=== PATIENT | female | born 1980 | race Two or more races ===

== ENCOUNTER 2020-03-22 07:49 | Day surgery (SDC) | payer SELFPAY ==
[2020-03-19 10:52] LABS: BLOOD UREA NITROGEN,BUN 18 mg/dL (7.0-18.0); CARBON DIOXIDE,CO2 23.7 mmol/L (21.0-32.0); CHLORIDE,CL 105 mmol/L (98-107); GLUCOSE RANDOM 102 mg/dL (74-106); SODIUM,NA 139 mmol/L (136-145)
[~2020-03-22 07:49] MED LIST: Lactated Ringers 1,000 ML IV SCH; Sodium Chloride 0.9% 10 ML SDV IV PRN; Sodium Chloride 0.9% 10 ML Syringe FLUSH PRN; Sodium Chloride 0.9% 2.5 ML Syringe FLUSH PRN; ceFAZolin 2 GM in Premix Bag 1 BAG IV ONE
--- NOTE | 2020-03-22 08:39 | PCM.PREANE ---
Preanesthetic Assessment - Anesthesia/Transfusion/Family Hx Anesthesia History: Prior Anesthesia Without Reaction Family History of Anesthesia Reaction: No Transfusion History: No Prior Transfusion(s) Intubation History: Unknown - Review of Systems General: No Symptoms Pulmonary: No Symptoms Cardiovascular: No Symptoms Gastrointestinal: No Symptoms Neurological: No Symptoms Other: Reports: None - Physical Assessment Vital Signs: Last Vital Signs Temp 36.5 C 03/22/20 08:08 Pulse 67 03/22/20 08:08 Resp 14 03/22/20 08:08 BP 117/69 03/22/20 08:08 Pulse Ox 100 03/22/20 08:08 Height: 5 ft 2 in Weight: 72.575 kg ASA Class: 2 Mental Status: Alert & Oriented x3 Airway Class: Mallampati = 2 Dentition: Reports: Normal Dentition Thyro-Mental Finger Breadths: 3 Mouth Opening Finger Breadths: 3 ROM/Head Extension: Full Lungs: Clear to Auscultation, Normal Respiratory Effort Cardiovascular: Regular Rate, Regular Rhythm - Lab Values: Laboratory Last Values WBC 5.57 K/uL (4.0-11.0) 03/22/20 08:09 RBC 4.50 M/uL (4.30-5.90) 03/22/20 08:09 Hgb 9.0 g/dL (12.0-16.0) L 03/22/20 08:09 Hct 31.6 % (36.0-46.0) L 03/22/20 08:09 MCV 70.2 fL (80.0-98.0) L 03/22/20 08:09 MCH 20.0 pg (27.0-32.0) L 03/22/20 08:09 MCHC 28.5 g/dL (31.0-37.0) L 03/22/20 08:09 RDW Std Deviation 52.6 fl (28.0-62.0) 03/22/20 08:09 RDW Coeff of Angi 21 % (11.0-15.0) H 03/22/20 08:09 Plt Count 328 K/uL (150-400) 03/22/20 08:09 MPV 8.80 fL (7.40-12.00) 03/22/20 08:09 Nucleated RBC % 0.0 /100WBC 03/22/20 08:09 Nucleated RBCs # 0 K/uL 03/22/20 08:09 Sodium 139 mmol/L (136-145) 03/19/20 10:12 Potassium 4.0 mmol/L (3.5-5.1) 03/19/20 10:12 Chloride 105 mmol/L (98-107) 03/19/20 10:12 Carbon Dioxide 23.7 mmol/L (21.0-32.0) 03/19/20 10:12 BUN 18 mg/dL (7.0-18.0) 03/19/20 10:12 Creatinine 0.6 mg/dL (0.6-1.0) 03/19/20 10:12 Est Cr Clr Drug Dosing TNP 03/19/20 10:12 Estimated GFR (MDRD) > 60.0 ml/min 03/19/20 10:12 Glucose 102 mg/dL (74-106) 03/19/20 10:12 Calcium 9.3 mg/dL (8.5-10.1) 03/19/20 10:12 HCG, Qual NEGATIVE (NEG) 03/19/20 10:12 Blood Type A POSITIVE 03/19/20 10:14 Antibody Screen NEGATIVE 03/19/20 10:14 - Allergies Allergies/Adverse Reactions: Allergies Allergy/AdvReac Type Severity Reaction Status Date / Time No Known Allergies Allergy Verified 03/22/20 08:17 - Blood Blood Available: No - Anesthesia Plan Pre-Op Medication Ordered: None - Acknowledgements Anesthesia Type Planned: General Anesthesia Pt an Appropriate Candidate for the Planned Anesthesia: Yes Alternatives and Risks of Anesthesia Discussed w Pt/Guardian: Yes Pt/Guardian Understands and Agrees with Anesthesia Plan: Yes PreAnesthesia Questionnaire HEENT History: Reports: None Cardiovascular History: Reports: None Respiratory History: Reports: None Gastrointestinal History: Reports: None Genitourinary History: Reports: None 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 History: Reports: Fibroids, , Other (See Below) (menorrhagia) Musculoskeletal History: Reports: Fracture Other Musculoskeletal History: hx fx arm Neurological History: Reports: None Psychiatric History: Reports: None Endocrine/Metabolic History: Reports: None Hematologic History: Reports: None Immunologic History: Reports: None Oncologic (Cancer) History: Reports: None Dermatologic History: Reports: None - Infectious Disease History Infectious Disease History: Reports: None - Past Surgical History Head Surgeries/Procedures: Reports: None HEENT Surgical History: Reports: None Cardiovascular Surgical History: Reports: None Respiratory Surgical History: Reports: None GI Surgical History: Reports: Appendectomy Female Surgical History: Reports: Section Endocrine Surgical History: Reports: None Neurological Surgical History: Reports: None Musculoskeletal Surgical History: Reports: None Oncologic Surgical History: Reports: None Dermatological Surgical History: Reports: None - SUBSTANCE USE Tobacco Use Status *Q: Never Tobacco User - HOME MEDS Home Medications: Home Meds Fish Oil/Thomson-3 Fatty Acids [Fish Oil 1,000 MG] 1,000 mg PO DAILY 03/19/20 [History] - CURRENT (IN HOUSE) MEDS Current Meds: Current Medications Lactated Ringer's (Ringers, Lactated) 1,000 mls @ 500 mls/hr IV BOLUS MICHAEL Last Admin: 03/22/20 08:13 Dose: 500 mls/hr Documented by: Sodium Chloride (Saline Flush) 10 ml FLUSH ASDIRECTED PRN PRN Reason: Keep Vein Open Sodium Chloride (Saline Flush) 2.5 ml FLUSH ASDIRECTED PRN PRN Reason: Keep Vein Open Sodium Chloride (Normal Saline) 10 ml IV ASDIRECTED PRN PRN Reason: IV Use Discontinued Medications Cefazolin Sodium/Dextrose 2 gm (/ Premix) 50 mls @ 100 mls/hr IV ONETIME ONE Stop: 03/19/20 10:09
[2020-03-22] MEDS ORDERED: Propofol 200 MG/20 ML SDV ONE (09:04)
[2020-03-22] MEDS ORDERED: Glycopyrrolate 0.2 MG/ML SDV ONE ×2 (09:04→09:39)
[2020-03-22] MEDS ORDERED: Lidocaine 2% 5 ML SDV ONE (09:04)
[2020-03-22] MEDS ORDERED: Ondansetron 4 MG/2 ML SDV ONE (09:04)
[2020-03-22] MEDS ORDERED: fentaNYL 250 MCG/5 ML SDV ONE (09:04)
[2020-03-22] MEDS ORDERED: Rocuronium Bromide 50 MG/5 ML Syringe ONE (09:04)
[2020-03-22] MEDS ORDERED: Midazolam 1 MG/ML 2 ML SDV ONE (09:04)
[2020-03-22] MEDS ORDERED: ceFAZolin 1 GM Vial ONE (09:44)
[2020-03-22] MEDS ORDERED: Sodium Chloride 0.9% 20 ML ONE (09:44)
[2020-03-22] MEDS ORDERED: ePHEDrine 50 MG/ML SDV ONE (09:46)
[2020-03-22] MEDS ORDERED: Furosemide 40 MG/4 ML VIAL ONE (10:39)
[2020-03-22] MEDS ORDERED: Fluorescein 5 ML Vial ONE (10:40)
[2020-03-22] MEDS ORDERED: Octyl 2-Cyanoacrylate 1 Tube ONE (10:51)
[2020-03-22] MEDS ORDERED: EPINEPHrine 1:10,000 1 MG/10 ML Syringe IVPUSH PRN (10:54)
[2020-03-22] MEDS ORDERED: 50% Dextrose in Water 50 ML Syringe IVPUSH PRN (10:54)
[2020-03-22] MEDS ORDERED: Atropine 0.1 MG/ML 10 ML Syringe IVPUSH PRN ×2 (10:54)
[2020-03-22] MEDS ORDERED: Naloxone 0.4 MG/ML Syringe IVPUSH PRN (10:54)
[2020-03-22] MEDS ORDERED: Albuterol 0.083% 2.5 MG/3 ML Neb Soln NEB PRN (10:54)
[2020-03-22] MEDS ORDERED: HYDROmorphone 2 MG/ML Syringe ONE (10:57)
[2020-03-22] MEDS ORDERED: Acetaminophen/oxyCODONE 325-5 MG Tab PO PRN (11:09)
[2020-03-22] MEDS ORDERED: Morphine 4 MG/ML Syringe IVPUSH PRN (11:09)
[2020-03-22] MEDS ORDERED: Ketorolac 30 MG/ML SDV IVPUSH PRN (11:09)
[2020-03-22] MEDS ORDERED: Promethazine 25 MG/ML SDV IM PRN (11:09)
[2020-03-22] MEDS ORDERED: Ondansetron 4 MG/2 ML SDV IVPUSH PRN (11:09)
[2020-03-22] MEDS ORDERED: Ketorolac 30 MG/ML SDV IVPUSH ONE (11:09)
--- NOTE | 2020-03-22 11:13 | PCM.OPNOTE ---
- General Post-Op/Procedure Note Date of Surgery/Procedure: 03/22/20 Operative Procedure(s): TLH, Cystoscopy. Pre Op Diagnosis: Bleeding Post-Op Diagnosis: Same Anesthesia Technique: General ET Tube Primary Surgeon: Matthew Martin EBL in mLs: 100 Complications: None Condition: Good
[2020-03-22] MEDS: fentaNYL 100 MCG/2 ML SDV IVPUSH PRN ×2 (11:59→12:09)
--- NOTE | 2020-03-22 12:25 | PCM.POSTAN ---
POST ANESTHESIA ASSESSMENT - MENTAL STATUS Mental Status: Alert, Oriented - VITAL SIGNS Vital Signs: Last Vital Signs Temp 36.6 C 03/22/20 11:10 Pulse 86 03/22/20 12:11 Resp 13 03/22/20 12:11 BP 85/49 L 03/22/20 12:11 Pulse Ox 99 03/22/20 12:11 - RESPIRATORY Respiratory Status: Respiratory Rate WNL, Airway Patent, O2 Saturation Stable - CARDIOVASCULAR CV Status: Pulse Rate WNL, Blood Pressure Stable - GASTROINTESTINAL GI Status: No Symptoms - PAIN Pain Score: 3 - POST OP HYDRATION Hydration Status: Adequate & Stable - OBSERVATIONS Free Text/Narrative:: No anesthesia problems
--- NOTE | 2020-03-22 14:42 | OR ---
SURGEON: Matthew Martin MD DATE OF PROCEDURE: 03/22/2020 PREOPERATIVE DIAGNOSES: Menometrorrhagia, fibroid uterus. POSTOPERATIVE DIAGNOSES: Menometrorrhagia, fibroid uterus. OPERATIONS PERFORMED: Total laparoscopic hysterectomy, laparoscopic bilateral salpingectomy, preserving both ovary, and cystoscopy. 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 ANESTHESIA: General endotracheal intubation, Chance Mercado and Dr Pinzon. ESTIMATED BLOOD LOSS: 100 mL. COMPLICATIONS: None. FINDINGS: Uterus about 13-week size, irregular, with fibroids. INDICATIONS FOR SURGERY: [place] referred to the admit note. PROCEDURE IN DETAIL: The patient was brought to the OR, properly identified. After adequate level of anesthesia, the patient placed in lithotomy position with an access to the abdomen and the vagina. The patient was prepped and draped in sterile fashion as usual. West catheter used to drain the bladder for drainage and the VCare. She did have VCare manipulator placed in the uterus for manipulation. The operation shifted abdominally. Stab wound done beneath the umbilicus. The Veress needle was placed in the peritoneal cavity and that cavity insufflated with adequate amount of CO2 to safely place the trocar. Then, the trocar was placed infraumbilically, 5 mm, Visiport technique was used. Next, after pulling the 5 mm trocar infraumbilically, the 10/12 trocar was placed in the left iliac fossa and 5 mm trocar in the right iliac fascia under direct vision. The operation started by identifying the landmark of the anatomy and the anatomy of the pelvis, and then using the Charlie Harmonic scalpel, the superior pedicle was coagulated and transected. The tubes were included with the specimen and the ovary preserved and then the round ligament was coagulated and transected and then the anterior leaf of the broad ligament dissected downward medially pushing the bladder completely away from the operative field, and at this time, the surgeon could feel easily the manipulator through the vagina. Next, the uterine vessel was coagulated and transected using the Charlie Harmonic scalpel at the edge of the manipulator. Once was that done, then using the Charlie Harmonic scalpel in a circular fashion entering the vagina anteriorly and detaching in a circular manner and cutting in a circular manner, detaching the cervix from its attachment to the vagina. The uterus and tubes were removed vaginally and then pneumoperitoneum re-established by placing vaginal pack. At that time, thorough irrigation of the pelvis was done. Inspection of all pedicles shows no oozing, no bleeding. We proceeded to close the vaginal cuff laparoscopically using 2-0 PDS interrupted suture, and while we were doing that, we asked the Anesthesia personnel to give the patient fluorescein, and after closing the vaginal cuff and deflating the abdomen and closing the laparoscopic incision, the West catheter removed. Cystoscopy performed. The bladder was intact. Both ureteric orifices were seen with the dye coming from both of them. Thus, the patency of both ureters verified. Satisfied with these findings, the procedure ended. Instrument and sponge count was correct. The patient tolerated the procedure well, went to recovery room in stable general condition. MARC / SHANNA /[id number]
[2020-03-22] MEDS: Acetaminophen/oxyCODONE 325-5 MG Tab PO PRN (21:23)
[2020-03-23 06:01] LABS: BLOOD UREA NITROGEN,BUN 13 mg/dL (7.0-18.0); CARBON DIOXIDE,CO2 27.5 mmol/L (21.0-32.0); CHLORIDE,CL 105 mmol/L (98-107); GLUCOSE RANDOM 102 mg/dL (74-106); POTASSIUM,K 3.5 mmol/L (3.5-5.1); SODIUM,NA 141 mmol/L (136-145)
[2020-03-23] MEDS: Acetaminophen/oxyCODONE 325-5 MG Tab PO PRN (08:48)
--- NOTE | 2020-03-23 09:30 | PCM.SURGPN ---
- General Info Date of Service: 03/23/20 POD#: 1 Functional Status: Reports: Pain Controlled - Review of Systems General: Reports: No Symptoms HEENT: Reports: No Symptoms Pulmonary: Reports: No Symptoms Cardiovascular: Reports: No Symptoms Gastrointestinal: Reports: No Symptoms Genitourinary: Reports: No Symptoms Musculoskeletal: Reports: No Symptoms Skin: Reports: No Symptoms Neurological: Reports: No Symptoms Psychiatric: Reports: No Symptoms - Patient Data Vitals - Most Recent: Last Vital Signs Temp 36.3 C 03/23/20 07:12 Pulse 78 03/23/20 07:12 Resp 13 03/23/20 07:12 BP 99/52 L 03/23/20 07:12 Pulse Ox 96 03/23/20 07:12 Weight - Most Recent: 72.575 kg I&O - Last 24 Hours: Intake & Output 03/22/20 03/23/20 03/23/20 22:59 06:59 14:59 Intake Total 150 740 Output Total 100 850 Balance 50 -110 Lab Results Last 24 Hrs: Laboratory Results - last 24 hr 03/19/20 03/23/20 03/23/20 Range/Units 10:14 05:14 05:14 WBC 6.63 (4.0-11.0) K/uL RBC 3.68 L (4.30-5.90) M/uL Hgb 7.7 L (12.0-16.0) g/dL Hct 26.2 L (36.0-46.0) % MCV 71.2 L (80.0-98.0) fL MCH 20.9 L (27.0-32.0) pg MCHC 29.4 L (31.0-37.0) g/dL RDW Std Deviation 52.7 (28.0-62.0) fl RDW Coeff of Angi 20 H (11.0-15.0) % Plt Count 245 (150-400) K/uL MPV 8.70 (7.40-12.00) fL Neut % (Auto) 56.3 (48.0-80.0) % Lymph % (Auto) 32.6 (16.0-40.0) % Baldwin % (Auto) 9.7 (0.0-15.0) % Eos % (Auto) 1.1 (0.0-7.0) % Baso % (Auto) 0.3 (0.0-1.5) % Neut # (Auto) 3.7 (1.4-5.7) K/uL Lymph # (Auto) 2.2 (0.6-2.4) K/uL Baldwin # (Auto) 0.6 (0.0-0.8) K/uL Eos # (Auto) 0.1 (0.0-0.7) K/uL Baso # (Auto) 0.0 (0.0-0.1) K/uL Nucleated RBC % 0.0 /100WBC Nucleated RBCs # 0 K/uL Sodium 141 (136-145) mmol/L Potassium 3.5 (3.5-5.1) mmol/L Chloride 105 (98-107) mmol/L Carbon Dioxide 27.5 (21.0-32.0) mmol/L BUN 13 (7.0-18.0) mg/dL Creatinine 0.7 (0.6-1.0) mg/dL Est Cr Clr Drug Dosing 85.34 mL/min Estimated GFR (MDRD) > 60.0 ml/min Glucose 102 (74-106) mg/dL Calcium 8.1 L (8.5-10.1) mg/dL Blood Type A POSITIVE Antibody Screen NEGATIVE Crossmatch See Detail Med Orders - Current: Current Medications Lactated Ringer's (Ringers, Lactated) 1,000 mls @ 500 mls/hr IV BOLUS MICHAEL Last Admin: 03/22/20 08:13 Dose: 500 mls/hr Documented by: Ketorolac Tromethamine (Toradol) 30 mg IVPUSH Q6H PRN PRN Reason: Pain (severe 7-10) Stop: 03/27/20 11:10 Morphine Sulfate (Morphine) 4 mg IVPUSH Q2H PRN PRN Reason: Pain (severe 7-10) Ondansetron HCl (Zofran) 4 mg IVPUSH Q6H PRN PRN Reason: Nausea/Vomiting Oxycodone/Acetaminophen (Percocet 325-5 Mg) 1 tab PO Q4H PRN PRN Reason: Pain (moderate 4-6) Last Admin: 03/22/20 16:45 Dose: 1 tab Documented by: Oxycodone/Acetaminophen (Percocet 325-5 Mg) 2 tab PO Q4H PRN PRN Reason: Pain (moderate 4-6) Last Admin: 03/23/20 08:48 Dose: 2 tab Documented by: Promethazine HCl (Phenergan) 25 mg IM Q6H PRN PRN Reason: Nausea/Vomiting Sodium Chloride (Saline Flush) 10 ml FLUSH ASDIRECTED PRN PRN Reason: Keep Vein Open Sodium Chloride (Saline Flush) 2.5 ml FLUSH ASDIRECTED PRN PRN Reason: Keep Vein Open Sodium Chloride (Normal Saline) 10 ml IV ASDIRECTED PRN PRN Reason: IV Use Discontinued Medications Albuterol (Proventil Neb Soln) 2.5 mg NEB ONETIME PRN PRN Reason: Wheezing Atropine Sulfate (Atropine 0.1 Mg/Ml) 0.5 mg IVPUSH ASDIRECTED PRN PRN Reason: Hypo-perfusion Atropine Sulfate (Atropine 0.1 Mg/Ml) 1 mg IVPUSH ASDIRECTED PRN PRN Reason: Hypo-Perfusion Cefazolin Sodium (Ancef) Confirm Administered Dose 1 gm .ROUTE .STZiios-MED ONE Stop: 03/22/20 09:45 Dextrose/Water (Dextrose 50% In Water) 50 ml IVPUSH ASDIRECTED PRN PRN Reason: Hypoglycemia Ephedrine Sulfate (Ephedrine Sulfate) Confirm Administered Dose 50 mg .ROUTE .STZiios-MED ONE Stop: 03/22/20 09:47 Epinephrine HCl (Epinephrine 1:10,000) 1 mg IVPUSH ASDIRECTED PRN PRN Reason: ACLS Guidelines Fentanyl (Sublimaze) Confirm Administered Dose 250 mcg .ROUTE .STK-MED ONE Stop: 03/22/20 09:05 Fentanyl (Sublimaze) 50 - 100 mcg IVPUSH Q5M PRN PRN Reason: Pain Last Admin: 03/22/20 12:09 Dose: 50 mcg Documented by: Fluorescein Sodium (Ak-Fluor) Confirm Administered Dose 5 ml .ROUTE .STK-MED ONE Stop: 03/22/20 10:41 Furosemide (Lasix) Confirm Administered Dose 40 mg .ROUTE .STK-MED ONE Stop: 03/22/20 10:40 Glycopyrrolate (Robinul) Confirm Administered Dose 0.4 mg .ROUTE .STK-MED ONE Stop: 03/22/20 09:05 Glycopyrrolate (Robinul) Confirm Administered Dose 0.2 mg .ROUTE .STK-MED ONE Stop: 03/22/20 09:40 Hydromorphone HCl (Dilaudid) Confirm Administered Dose 2 mg .ROUTE .STK-MED ONE Stop: 03/22/20 10:58 Cefazolin Sodium/Dextrose 2 gm (/ Premix) 50 mls @ 100 mls/hr IV ONETIME ONE Stop: 03/19/20 10:09 Sodium Chloride (Normal Saline) Confirm Administered Dose 20 mls @ as directed .ROUTE .ST-MED ONE Stop: 03/22/20 09:45 Ketorolac Tromethamine (Toradol) 30 mg IVPUSH ONETIME ONE Stop: 03/22/20 11:10 Last Admin: 03/22/20 11:35 Dose: 30 mg Documented by: Lidocaine (Xylocaine-Mpf 2%) Confirm Administered Dose 5 ml .ROUTE .STK-MED ONE Stop: 03/22/20 09:05 Midazolam HCl (Versed 1 Mg/Ml) Confirm Administered Dose 2 mg .ROUTE .ST-MED ONE Stop: 03/22/20 09:05 Naloxone HCl (Narcan) 0.1 mg IVPUSH ASDIRECTED PRN PRN Reason: Respiratory Depression Octyl Cyanoacrylate (Dermabond Advance) Confirm Administered Dose 1 applic .ROUTE .ST-MED ONE Stop: 03/22/20 10:52 Ondansetron HCl (Zofran) Confirm Administered Dose 4 mg .ROUTE .STK-MED ONE Stop: 03/22/20 09:05 Propofol (Diprivan 20 Ml) Confirm Administered Dose 200 mg .ROUTE .STK-MED ONE Stop: 03/22/20 09:05 Rocuronium [place] (Rocuronium [place]) Confirm Administered Dose 50 mg .ROUTE .ST-MED ONE Stop: 03/22/20 09:05 - Exam Wound/Incisions: Healing Well General: Alert, Oriented HEENT: Pupils Equal Neck: Supple Lungs: Clear to Auscultation, Normal Respiratory Effort Cardiovascular: Regular Rate, Regular Rhythm GI/Abdominal Exam: Normal Bowel Sounds, Soft, Non-Tender, No Organomegaly, No Distention, No Abnormal Bruit, No Mass, Pelvis Stable Extremities: Normal Inspection, Normal Range of Motion, Non-Tender, No Pedal Edema, Normal Capillary Refill Skin: Warm, Dry, Intact Neurological: No New Focal Deficit Psy/Mental Status: Alert, Normal Affect, Normal Mood Sepsis Event Note - Evaluation Sepsis Screening Result: No Definite Risk - Focused Exam Vital Signs: Vital Signs Temp Pulse Resp BP Pulse Ox 03/23/20 07:12 36.3 C 78 13 99/52 L 96 03/23/20 03:30 36.2 C 67 16 98/54 L 94 L 03/22/20 23:38 37.5 C 72 16 90/50 L 94 L - Problem List Review Problem List Initiated/Reviewed/Updated: Yes - My Orders Last 24 Hours: Active Orders 24 hr Category Date Time Status Patient Status [ADT] Routine ADT 03/22/20 11:10 Active Antiembolic Devices [RC] PER UNIT ROUTINE Care 03/22/20 11:10 Active Notify Provider Vital Signs [RC] ASDIRECTED Care 03/22/20 10:54 Active Notify Provider Vital Signs [RC] ASDIRECTED Care 03/22/20 11:10 Active Oxygen Therapy [RC] ASDIRECTED Care 03/22/20 11:10 Active Oxygen Therapy [RC] PRN Care 03/22/20 10:54 Active RT Aerosol Therapy [RC] ASDIRECTED Care 03/22/20 10:54 Active RT Incentive Spirometry [RC] Q2HWA Care 03/22/20 11:10 Active Up With Assistance [RC] PER UNIT ROUTINE Care 03/22/20 11:10 Active Up ad Rena [RC] PER UNIT ROUTINE Care 03/22/20 11:10 Active Vital Signs [RC] Q4H Care 03/22/20 10:54 Active Regular Diet [DIET] Diet 03/22/20 Dinner Active Acetaminophen/oxyCODONE [Percocet 325-5 MG] Med 03/22/20 11:09 Active 1 tab PO Q4H PRN Acetaminophen/oxyCODONE [Percocet 325-5 MG] Med 03/22/20 11:09 Active 2 tab PO Q4H PRN Ketorolac [Toradol] Med 03/22/20 11:09 Active 30 mg IVPUSH Q6H PRN Morphine Med 03/22/20 11:09 Active 4 mg IVPUSH Q2H PRN Ondansetron [Zofran] Med 03/22/20 11:09 Active 4 mg IVPUSH Q6H PRN Promethazine [Phenergan] Med 03/22/20 11:09 Active 25 mg IM Q6H PRN Peripheral IV Discontinue [OM.PC] Routine Oth 03/22/20 11:10 Ordered Sequential Compression Device [OM.PC] Per Unit Routine Oth 03/22/20 11:10 Ordered Resuscitation Status Routine Resus Stat 03/22/20 11:09 Ordered Medication Orders Lactated Ringer's (Ringers, Lactated) 1,000 mls @ 500 mls/hr IV BOLUS MICHAEL Last Admin: 03/22/20 08:13 Dose: 500 mls/hr Documented by: ARIELA Ketorolac Tromethamine (Toradol) 30 mg IVPUSH Q6H PRN PRN Reason: Pain (severe 7-10) Stop: 03/27/20 11:10 Morphine Sulfate (Morphine) 4 mg IVPUSH Q2H PRN PRN Reason: Pain (severe 7-10) Ondansetron HCl (Zofran) 4 mg IVPUSH Q6H PRN PRN Reason: Nausea/Vomiting Oxycodone/Acetaminophen (Percocet 325-5 Mg) 1 tab PO Q4H PRN PRN Reason: Pain (moderate 4-6) Last Admin: 03/22/20 16:45 Dose: 1 tab Documented by: JJ Oxycodone/Acetaminophen (Percocet 325-5 Mg) 2 tab PO Q4H PRN PRN Reason: Pain (moderate 4-6) Last Admin: 03/23/20 08:48 Dose: 2 tab Documented by: LYNDON Cosigned by: [id number] Admin: 03/22/20 21:23 Dose: 2 tab Documented by: VEE Promethazine HCl (Phenergan) 25 mg IM Q6H PRN PRN Reason: Nausea/Vomiting Sodium Chloride (Saline Flush) 10 ml FLUSH ASDIRECTED PRN PRN Reason: Keep Vein Open Sodium Chloride (Saline Flush) 2.5 ml FLUSH ASDIRECTED PRN PRN Reason: Keep Vein Open Sodium Chloride (Normal Saline) 10 ml IV ASDIRECTED PRN PRN Reason: IV Use - Assessment Assessment (Free Text/Narrative):: Status post H cystoscopy postoperative day #1 the patient afebrile her lab work is stable she is ambulatory on regular diet and voiding without any problem and there is minimum vaginal bleeding. - Plan Plan (Free Text/Narrative):: The patient will be sent home today the postvasectomy instruction there is no restriction on her diet I'm given her prescription for Narco 5/325 for postoperative pain the patient is already have an appointment to see me in the office in one week.
--- NOTE | 2020-03-23 14:05 | PCM48HPAN ---
Post Anesthesia Note - EVALUATION WITHIN 48HRS OF ANESTHETIC Vital Signs in Normal Range: Yes Patient Participated in Evaluation: Yes Respiratory Function Stable: Yes Airway Patent: Yes Cardiovascular Function Stable: Yes Hydration Status Stable: Yes Pain Control Satisfactory: Yes Nausea and Vomiting Control Satisfactory: Yes Mental Status Recovered: Yes Vital Signs: Last Vital Signs Temp 36.3 C 03/23/20 07:12 Pulse 78 03/23/20 07:12 Resp 13 03/23/20 07:12 BP 99/52 L 03/23/20 07:12 Pulse Ox 96 03/23/20 07:12 - COMMENTS/OBSERVATIONS Free Text/Narrative:: Patient sitting up in bed eating breakfast. No anesthesia complications or concerns at this time.
== END 2020-03-23 11:00 | disposition home or self-care (01) ==
LOC: MW.SDS 07:49 → MW.MS 11:29 → MW.SDS 03-23 11:00
PROVIDERS: ATTEND Obstetrics & Gynecology
DX: N80.0 Endometriosis of uterus (principal); D25.9 Leiomyoma of uterus, unspecified; D64.9 Anemia, unspecified
CPT/HCPCS: 36415; 58571; 80048; 84703; 85025; 85027; 86850; 86900; 86901; 86920; 86921; 86922; 88307; A9270; J0690; J1170; J1885; J1940; J2001; J2250; J2704; J3010; J3490; J7120; 00944; J2405